=== PATIENT | male | born 1995 | race Caucasian/White ===

== ENCOUNTER 2019-02-15 18:27 | Emergency (ER) | payer BC, MEDICAID ==
--- NOTE | 2019-02-15 19:11 | EDM.PDOC ---
ED HPI GENERAL MEDICAL PROBLEM - General Chief Complaint: Lower Extremity Injury/Pain Stated Complaint: RIGHT FOOT INJURY Time Seen by Provider: 02/15/19 18:35 Source of Information: Reports: Patient, RN Notes Reviewed History Limitations: Reports: No Limitations - History of Present Illness INITIAL COMMENTS - FREE TEXT/NARRATIVE: Patient is a 23-year-old male who presents to the ED for the evaluation of a right foot injury. The patient states that he was moving a sectional couch last week, when the couch ended up dropping onto his right foot. He states he did have some pain at that point in time. But was able to manage, he states he also was climbing down a ladder and then got the same right foot trapped at in a rung and had instant pain to the top of his foot as well. This was roughly 3 days ago. He states that the pain after the ladder incident was worse than the pain that was present with the couch incident. He does note some increased swelling and bruising since the ladder incident. The patient has been able to bear weight okay, but he states it is painful to do so. He has not been taking anything for pain medications such as Tylenol or ibuprofen for this. Right Foot Pain Score (Numeric/FACES): 5 - Related Data Allergies Allergy/AdvReac Type Severity Reaction Status Date / Time No Known Allergies Allergy Verified 02/15/19 18:39 Home Meds: Home Meds . [No Known Home Meds] 02/15/19 [History] Past Medical History - Past Health History Medical/Surgical History: Denies Medical/Surgical History Social & Family History - Tobacco Use Smoking Status *Q: Never Smoker - Recreational Drug Use Recreational Drug Use: No Review of Systems - Review of Systems Review Of Systems: See Below Constitutional: Reports: No Symptoms Eyes: Reports: No Symptoms Ears: Reports: No Symptoms Nose: Reports: No Symptoms Mouth/Throat: Reports: No Symptoms Respiratory: Reports: No Symptoms Cardiovascular: Reports: No Symptoms GI/Abdominal: Reports: No Symptoms Genitourinary: Reports: No Symptoms Musculoskeletal: Reports: Foot Pain (Right dorsum of foot) Skin: Reports: Bruising (to right dorsum of foot, and at base of toes.). Denies : Cyanosis, Wound Neurological: Denies: Numbness, Tingling, Difficulty Walking Psychiatric: Reports: No Symptoms ED EXAM, GENERAL - Physical Exam Exam: See Below Exam Limited By: No Limitations General Appearance: Alert, WD/WN, No Apparent Distress Respiratory/Chest: No Respiratory Distress, Lungs Clear, Normal Breath Sounds, No Accessory Muscle Use, Chest Non-Tender Cardiovascular: Normal Peripheral Pulses, Regular Rate, Rhythm, No Murmur Peripheral Pulses: 3+: Dorsalis Pedis (L), Dorsalis Pedis (R) Extremities: Normal Inspection (mild swelling noted to dorsum of R foot, otherwise normal appearance), Normal Range of Motion, Normal Capillary Refill Neurological: Alert, Oriented, Normal Cognition, Normal Gait, No Motor/Sensory Deficits Psychiatric: Normal Affect, Normal Mood Skin Exam: Warm, Dry, Intact, No Rash, Ecchymosis (noted to base of toes and dorsum of R foot) Course - Vital Signs Last Recorded V/S: Last Vital Signs Temp 98.4 F 02/15/19 18:36 Pulse 93 02/15/19 18:36 Resp 16 02/15/19 18:36 BP 147/84 H 02/15/19 18:36 Pulse Ox 95 02/15/19 18:36 - Orders/Labs/Meds Orders: Active Orders 24 hr Category Date Time Status Foot Comp Min 3V Rt [CR] Stat Exams 02/15/19 18:43 Ordered - Re-Assessments/Exams Free Text/Narrative Re-Assessment/Exam: 02/15/19 19:35 Patient presents to the ED for the evaluation of a right foot injury. I did order a right foot x-ray for further evaluation, this was reviewed by Dr. Horn and myself, there is no obvious sign of acute bony fracture or abnormality at this time. We'll discharge the patient home with general recommendations. Departure - Departure Time of Disposition: 19:35 Disposition: Home, Self-Care 01 Condition: Fair Clinical Impression: Right foot pain - Discharge Information *PRESCRIPTION DRUG MONITORING PROGRAM REVIEWED*: No *COPY OF PRESCRIPTION DRUG MONITORING REPORT IN PATIENT RUPERTO: No Instructions: Musculoskeletal Pain Referrals: PCP,Not In Area [Primary Care Provider] - Forms: ED Department Discharge Additional Instructions: You have been evaluated in the ED for your right foot injury. Your x-ray demonstrated no acute fracture or bony abnormality. Please use ice as tolerated to the affected area. You may take tylenol 500 mg or ibuprofen 600mg q6 hrs for pain relief. Please do so until you have a tolerable level of pain with activity. Do not exceed 4000mg tylenol, Do not exceed 3200mg ibuprofen in a 24 hour time period Please return to ED if your symptoms should change or worsen. - My Orders Last 24 Hours: My Active Orders 02/15/19 18:43 Foot Comp Min 3V Rt [CR] Stat - Assessment/Plan Last 24 Hours: My Active Orders 02/15/19 18:43 Foot Comp Min 3V Rt [CR] Stat
--- NOTE | 2019-02-17 10:42 | CR ---
Right foot: Four views of the right foot were obtained. Comparison: No prior foot exam. Joint spaces are preserved. No fracture, dislocation or other bony abnormality is seen. Impression: 1. No abnormality is identified on right foot exam. Diagnostic code #1
== END 2019-02-15 19:50 | disposition home or self-care (01) ==
LOC: JD.ED 18:27
DX: S90.31XA Contusion of right foot, initial encounter (principal); W20.8XXA Other cause of strike by thrown, projected or falling object, initial encounter
CPT/HCPCS: 73630-26-RT; 73630-RT; 99282; 99283-25

== ENCOUNTER 2021-11-14 22:28 | Emergency (ER) | payer SELFPAY ==
[2021-11-14] MEDS ORDERED: Cephalexin 500 MG Cap PO ONE (23:02)
== END 2021-11-14 23:15 | disposition home or self-care (01) ==
LOC: JD.ED 22:28
DX: L60.0 Ingrowing nail (principal); L08.9 Local infection of the skin and subcutaneous tissue, unspecified
CPT/HCPCS: 99283; A9270; 99284

== ENCOUNTER 2022-03-30 01:05 | Emergency (ER) | payer OTHER ==
[2022-03-30] MEDS ORDERED: Ibuprofen 600 MG Tab PO ONE (01:29)
== END 2022-03-30 01:38 | disposition home or self-care (01) ==
LOC: JD.ED 01:05
DX: S00.03XA Contusion of scalp, initial encounter (principal); E66.9 Obesity, unspecified; Z68.30 Body mass index [BMI] 30.0-30.9, adult; W22.8XXA Striking against or struck by other objects, initial encounter
CPT/HCPCS: 99283; A9270

== ENCOUNTER 2022-03-30 10:16 | Emergency (ER) | payer OTHER ==
[2022-03-30] MEDS ORDERED: Ketorolac 15 MG/ML SDV IM ONE (10:40)
[2022-03-30] MEDS ORDERED: Ondansetron 4 MG Tab.DIS PO ONE (10:40)
== END 2022-03-30 11:39 | disposition home or self-care (01) ==
LOC: JD.ED 10:16
DX: S06.0X0A Concussion without loss of consciousness, initial encounter (principal); E66.9 Obesity, unspecified; Z68.37 Body mass index [BMI] 37.0-37.9, adult; X58.XXXA Exposure to other specified factors, initial encounter; S00.03XA Contusion of scalp, initial encounter; W22.8XXA Striking against or struck by other objects, initial encounter
CPT/HCPCS: 70450; 96372; 99283; 99284; A9270; J1885; 99282

== ENCOUNTER 2023-12-14 21:36 | Emergency (ER) | payer OTHER ==
[2023-12-14] MEDS ORDERED: Cephalexin 500 MG Cap PO ONE (22:03)
== END 2023-12-14 22:18 | disposition home or self-care (01) ==
LOC: JD.ED 21:36
DX: L60.0 Ingrowing nail (principal); E66.9 Obesity, unspecified; Z68.36 Body mass index [BMI] 36.0-36.9, adult; Z79.899 Other long term (current) drug therapy
CPT/HCPCS: 99282; 99283